=== PATIENT | male | born 1970 | race Caucasian/White ===

== ENCOUNTER 2018-01-12 19:23 | Emergency (ER) | payer OTHER ==
[2018-01-12 19:30] VITALS: BMI 36.6
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
--- NOTE | 2018-01-12 20:44 | CT ---
Indication: Injury and pain Exam: CT head without contrast Technique: Routine transaxial images were obtained of the brain without contrast. Findings: The ventricles are normal. No intracranial hemorrhage or edema is seen. There is no extra-a xial fluid collection or mass. There is mild stranding and edema in the subcutaneous soft tissues adonay ng the left temporal region extending inferiorly along the zygomatic arch on the left. No obvious fra cture can be seen. The midline structures are unremarkable. Impression: No acute intracranial abnormality. Mild scalp hematoma along the left temporal region extending along the left zygomatic arch with no ac dereck fracture. Reported By:
--- NOTE | 2018-01-12 20:47 | CT ---
Indication: Left facial swelling and pain Exam: CT facial bones. Technique: Axial spiral images were obtained from the level above the frontal sinuses through the max illa and reconstructed at 2 mm avulsed with coronal and sagittal reconstructions. Findings: The frontal sinuses are clear. There is mild mucosal thickening throughout the ethmoid and maxillary sinuses. There are no air-fluid levels. The nasal bone is intact. The orbits are intact. Th e mandible appears intact and in good position. The zygomatic arches are intact. The visualized intra cranial and orbital contents are unremarkable. There is moderate stranding and edema in the subcutane ous soft tissues along the temporal region on the left extending inferiorly around the zygomatic arch . The nasal septum is moderately deviated to the right. Impression: No acute bony abnormality seen. Mild chronic sinusitis. Mild to moderate scalp hematoma along the left temporal bone extending around the left zygomatic arch . Reported By:
[2018-01-12 20:54] VITALS: BP 132/75
== END 2018-01-12 21:15 | disposition home or self-care (01) ==
LOC: ER 19:33
DX: S00.03XA Contusion of scalp, initial encounter (principal); S00.83XA Contusion of other part of head, initial encounter; H93.11 Tinnitus, right ear; J32.9 Chronic sinusitis, unspecified; Y04.0XXA Assault by unarmed brawl or fight, initial encounter; X58.XXXA Exposure to other specified factors, initial encounter; Y92.9 Unspecified place or not applicable
CPT/HCPCS: 70450; 70486; 99282; 99283

== ENCOUNTER 2021-05-07 01:02 | Observation (INO) ==
[2021-05-07] MEDS ORDERED: NS 1000 ML 1,000 ML ONE ×4 (01:20→14:45)
[2021-05-07] MEDS ORDERED: NS 1000 ML 1,000 ML IV ONE ×3 (01:32→03:55)
[2021-05-07] MEDS ORDERED: ZOFRAN INJ 4 MG VIAL IVP ONE ×2 (01:36→03:54)
--- NOTE | 2021-05-07 01:40 | DR.N/VMALE ---
HPI Time Seen Time Seen by Provider: 05/07/21 01:23 Primary Care Physician Primary Care Physician: KEE Complaints Chief Complaint:: PT AMBULATORY IN ED WITH C/O DIARRHEA X 2 DAYS AND VOMITING THAT STARTED TONIGHT. Self Treatment fo Chief Complaint: PT TOOK TYLENOL X 2 AND IMMODIUM X 2 AT AROUND 9PN AND 2 MORE TYLENOL AT AROUND MIDNIGHT. COVID-19 Coronavirus risk:travel/contact w/high risk person: No Has patient experienced Coronavirus symptoms: No Source History Provided: Patient Mode of Arrival Mode of Arrival: Ambulatory Timing Onset of Chief Complaint: 05/05/21 PMH PMH Past Medical History: Yes Past Medical History: Anxiety, Diabetes, GERD and Hypertension Past Surgical History: Yes Surgical History: Cholecystectomy and Ortho Surgery Past Surgical History Comment: BACK Family History History of Family Medical Conditions: Yes Family Medical History: Diabetes Mellitus, Cancer, [place], Coronary Artery Disease and Hypertension Social History Does patient currently use any type of tobacco product: No Have you used tobacco products in the last 12 months: No Type of Tobacco Use: None Does any household member use tobacco: No Alcohol Use: None Do you use any recreational Drugs:: No Lives With: Spouse and Family Lives Where: Home Travel Risk Coronavirus risk:travel/contact w/high risk person: No Has patient experienced Coronavirus symptoms: No Infectious screening In the last 2 months have you had wt loss of >10#?: NO Have you had fever, night sweats or hemotysis?: No Have you traveled outside the country in the last 6 months?: No Isolation: Standard PE Vital Signs Vitals: Temperature 98.6 F Pulse Rate 97 Respiratory Rate 20 Blood Pressure [Left Arm] 132/75 Blood Pressure [Right Arm] 120/61 Blood Pressure 123/53 O2 Sat by Pulse Oximetry 100 ROR Labs Reviewed Result Diagrams: 05/07/21 01:25 05/07/21 01:25 Laboratory: WBC 11.9 X10^3/uL (3.6-10.0) H 05/07/21 01:25 RBC 4.97 X10^6/uL (4.7-6.0) 05/07/21 01:25 Hgb 15.5 g/dL (13.5-18.0) 05/07/21 01:25 Hct 44.6 % (42.0-54.0) 05/07/21 01:25 MCV 89.7 fL (80.0-100.0) 05/07/21 01:25 MCH 31.1 pg (27.0-34.0) 05/07/21 01:25 MCHC 34.7 g/dL (33.0-35.0) 05/07/21 01:25 RDW 12.7 % (11.6-16.5) 05/07/21 01:25 Plt Count 171 X10^3/uL (150.0-450.0) 05/07/21 01:25 MPV 8.5 fL (7.4-11.0) 05/07/21 01:25 Neut % (Auto) 83.5 % (42.0-75.0) H 05/07/21 01:25 Lymph % (Auto) 7.2 % (21.0-51.0) L 05/07/21 01:25 [place] % (Auto) 8.8 % (0.0-13.0) 05/07/21 01:25 Eos % (Auto) 0.2 % (0.9-2.9) L 05/07/21 01:25 Baso % (Auto) 0.3 % (0.2-1.0) 05/07/21 01:25 Neut # (Auto) 10.0 x10^3/uL (2.2-4.8) H 05/07/21 01:25 Lymph # (Auto) 0.9 X10^3/uL (1.3-2.9) L 05/07/21 01:25 [place] # (Auto) 1.0 x10^3/uL (0.3-0.8) H 05/07/21 01:25 Eos # (Auto) 0.0 x10^3/uL (0.0-0.2) 05/07/21 01:25 Baso # (Auto) 0.0 X10^3/uL (0.0-0.1) 05/07/21 01:25 Absolute Nucleated RBC 0.0 /100WBC 05/07/21 01:25 Sodium 139 mmol/L (136-145) 05/07/21 01:25 Corrected Sodium 141 mmol/L (136-145) 05/07/21 01:25 Potassium 3.7 mmol/L (3.5-5.1) 05/07/21 01:25 Chloride 105 mmol/L (98-107) 05/07/21 01:25 Carbon Dioxide 20.0 mmol/L (21-32) L 05/07/21 01:25 BUN 23 mg/dL (7-18) H 05/07/21 01:25 Creatinine 1.23 mg/dL (0.70-1.30) 05/07/21 01:25 Est GFR (MDRD) Af Amer > 60 (>60) 05/07/21 01:25 Est GFR (MDRD) Non-Af > 60 (>60) 05/07/21 01:25 Glucose 197 mg/dL (65-99) H 05/07/21 01:25 Lactic Acid 1.8 mmol/L (0.4-2.0) 05/07/21 01:25 Calcium 8.6 mg/dL (8.5-10.1) 05/07/21 01:25 Corrected Calcium TNP 05/07/21 01:25 Total Bilirubin 0.90 mg/dL (0.2-1.0) 05/07/21 01:25 AST 14 Units/L (15-37) L 05/07/21 01:25 ALT 35 Units/L (12-78) 05/07/21 01:25 Alkaline Phosphatase 104 Units/L (46-116) 05/07/21 01:25 Creatine Kinase 63 Units/L (39-308) 05/07/21 01:25 CK-MB (CK-2) < 1.0 ng/mL (0-4.0) 05/07/21 01:25 CK/CKMB % Calc 1.6 % (<4) 05/07/21 01:25 Troponin I < 0.02 ng/mL (0-1.5) 05/07/21 01:25 Total Protein 6.9 g/dL (6.4-8.2) 05/07/21 01:25 Albumin 3.6 g/dL (3.4-5.0) 05/07/21 01:25 Globulin 3.3 g/dL (2.5-4.5) 05/07/21 01:25 Albumin/Globulin Ratio 1.1 Ratio (1.1-2.1) 05/07/21 01:25 Amylase 27 Units/L (25-115) 05/07/21 01:25 Lipase 98 Units/L (73-393) 05/07/21 01:25 Specimen Type Clean catch urine 05/07/21 03:34 Urine Color Straw (YELLOW) 05/07/21 03:34 Urine Appearance Clear (CLEAR) 05/07/21 03:34 Urine pH 5.0 (5.0 - 8.0) 05/07/21 03:34 Ur Specific [place] 1.020 (1.000-1.030) 05/07/21 03:34 Urine Protein Negative (NEGATIVE) 05/07/21 03:34 Urine Glucose (UA) 4+ (NEGATIVE) 05/07/21 03:34 Urine Ketones 1+ (NEGATIVE) 05/07/21 03:34 Urine Occult Blood Negative (NEGATIVE) 05/07/21 03:34 Urine Nitrite Negative (NEGATIVE) 05/07/21 03:34 Urine Bilirubin Negative (NEGATIVE) 05/07/21 03:34 Urine Urobilinogen Normal (NORMAL) 05/07/21 03:34 Ur Leukocyte Esterase Negative (NEGATIVE) 05/07/21 03:34 Acetone, Semi-Quant Negative (NEGATIVE) 05/07/21 01:25 SARS-CoV-2 (PCR) Negative (NEGATIVE) 05/07/21 01:31 Influenza Type A (PCR) Negative (NEGATIVE) 05/07/21 01:31 Influenza Type B (PCR) Negative (NEGATIVE) 05/07/21 01:31 RSV (PCR) Negative (NEGATIVE) 05/07/21 01:31 Opioid Opioid Risk Tool Age (Mahad box if 16-45): No History of Preadolescent Sexual Abuse: No Total: 0 Total Score Risk Category: Low Risk Copyright: Josh FAUST predicting aberrant behaviors
[2021-05-07] MEDS ORDERED: ZOFRAN INJ 4 MG VIAL ONE ×2 (01:43→03:56)
[2021-05-07 02:00] LABS: BASOPHILS % (AUTO) 0.3 % (0.2-1.0); EOSINOPHILS % (AUTO) 0.2 % (0.9-2.9); HEMATOCRIT 44.6 % (42.0-54.0); HEMOGLOBIN 15.5 g/dL (13.5-18.0); LYMPHOCYTES # (AUTO) 0.9 X10^3/uL (1.3-2.9); LYMPHOCYTES % (AUTO) 7.2 % (21.0-51.0); MEAN CORPUSCULAR HEMOGLOBIN 31.1 pg (27.0-34.0); MEAN CORPUSCULAR HGB CONC 34.7 g/dL (33.0-35.0); MEAN CORPUSCULAR VOLUME 89.7 fL (80.0-100.0); MEAN PLATELET VOLUME 8.5 fL (7.4-11.0); MONOCYTES % (AUTO) 8.8 % (0.0-13.0); NEUTROPHILS % (AUTO) 83.5 % (42.0-75.0); PLATELET COUNT 171 X10^3/uL (150.0-450.0); RED BLOOD COUNT 4.97 X10^6/uL (4.7-6.0); RED CELL DISTRIBUTION WIDTH 12.7 % (11.6-16.5); WHITE BLOOD COUNT 11.9 X10^3/uL (3.6-10.0)
[2021-05-07 02:16] LABS: ALANINE AMINOTRANSFERASE 35 Units/L (12-78); ALBUMIN 3.6 g/dL (3.4-5.0); ALKALINE PHOSPHATASE 104 Units/L (46-116); AMYLASE 27 Units/L (25-115); ASPARTATE AMINO TRANSFERASE 14 Units/L (15-37); BLOOD UREA NITROGEN 23 mg/dL (7-18); CALCIUM 8.6 mg/dL (8.5-10.1); CHLORIDE 105 mmol/L (98-107); COR NA(FOR HYPERGLY) 141 mmol/L (136-145); CREATININE 1.23 mg/dL (0.70-1.30); LIPASE 98 Units/L (73-393); SODIUM 139 mmol/L (136-145); TOTAL PROTEIN 6.9 g/dL (6.4-8.2); eGFR NON BLACK RACES > 60 (>60)
[2021-05-07 02:19] LABS: LACTIC ACID 1.8 mmol/L (0.4-2.0)
[2021-05-07 02:26] LABS: CKMB % 1.6 % (<4); CREATINE KINASE 63 Units/L (39-308); CREATINE KINASE MB < 1.0 ng/mL (0-4.0); TROPONIN I < 0.02 ng/mL (0-1.5)
--- NOTE | 2021-05-07 02:48 | RAD ---
STUDY: FRONTAL VIEW CHESTCOMPARISON: NoneHISTORY: SOBFINDINGS:No focal consolidation is seen.The heart size is within normal limits.The mediastinum is unremarkable.There is no evidence of pleural effusion or gross pneumothorax.The trachea is midline.IMPRESSION:1. No focal consolidation is seen.2. The heart size is normal.Electronically signed by: Cedrick Ramos (May 07, 2021 02:45:39)
[2021-05-07 03:48] LABS: BILIRUBIN,URINE NEGATIVE (NEGATIVE); BLOOD/HEMOGLOBIN,URINE NEGATIVE (NEGATIVE); GLUCOSE, URINE 4+ (NEGATIVE); KETONES,URINE 1+ (NEGATIVE); LEUKOCYTE ESTERASE ,URINE NEGATIVE (NEGATIVE); NITRITES,URINE NEGATIVE (NEGATIVE); PROTEIN,URINE NEGATIVE (NEGATIVE); UROBILINOGEN,URINE NORMAL (NORMAL)
[2021-05-07 03:54] LABS: APPEARANCE,URINE CLEAR (CLEAR); COLOR,URINE STRAW (YELLOW)
--- NOTE | 2021-05-07 04:16 | CT ---
STUDY: CT ABDOMEN AND PELVIS WITHOUT IV CONTRASTCOMPARISON: NoneTECHNIQUE: Axial images were obtained of the abdomen and pelvis without IV contrast. Sagittal and coronal reformatted images were provided. All images were reviewed in a variety of windows and levels.RADIATION REDUCTION TECHNIQUE: Automated exposure control, adjustment of the mA or kV according to patient size, or iterative reconstruction techniques were used.HISTORY: abdominal painFINDINGS:Please note that lack of IV contrast does limit evaluation of the soft tissues and vascular detail.The visualized lower lung zones are clear. The heart size is within normal limits. There is no evidence of a pericardial effusion.The liver, spleen, pancreas, adrenal glands, and kidneys are grossly unremarkable. The patient is status post cholecystectomy.There is no evidence of stones or signs of obstructive uropathy.The stomach, small bowel, and colon are grossly unremarkable. A few scattered diverticula are seen without evidence of diverticulitis. There are no inflammatory changes in the right lower quadrant to suggest secondary signs of acute appendicitis. The appendix is not visualized on this exam. Umbilical hernia is notedThere is no evidence of retroperitoneal or mesenteric lymphadenopathy.The visualized bones demonstrate degenerative changes. There are no concerning lytic or blastic lesions identified.IMPRESSION:- Status post cholecystectomy- No evidence of stones or signs of obstructive uropathyElectronically signed by: Cedrick Ramos (May 07, 2021 04:13:51)
[2021-05-07] MEDS ORDERED: TORADOL 30 MG VIAL IVP ONE (04:29)
[2021-05-07] MEDS ORDERED: REGLAN INJ 10 MG VIAL IVP ONE (04:29)
[2021-05-07] MEDS ORDERED: TORADOL 30 MG VIAL ONE (04:31)
[2021-05-07] MEDS ORDERED: REGLAN INJ 10 MG VIAL ONE (04:31)
[2021-05-07] MEDS ORDERED: ZOSYN VIAL 3.375 GRAMS 3.375 G in NS 100 ML IV + SPIKE MINIBAG* 100 ML IV ONE (05:35)
[2021-05-07] MEDS ORDERED: NS 100 ML IV + SPIKE MINIBAG* 100 ML IV ONE (05:37)
[2021-05-07] MEDS ORDERED: ZOSYN VIAL 3.375 GRAMS IV ONE (05:37)
[2021-05-07] MEDS ORDERED: REGLAN INJ 10 MG VIAL IVP PRN (06:11)
[2021-05-07 06:26] LABS: ALANINE AMINOTRANSFERASE 34 Units/L (12-78); ALBUMIN 3.2 g/dL (3.4-5.0); ALKALINE PHOSPHATASE 98 Units/L (46-116); ASPARTATE AMINO TRANSFERASE 23 Units/L (15-37); BLOOD UREA NITROGEN 21 mg/dL (7-18); CARBON DIOXIDE 20.3 mmol/L (21-32); CHLORIDE 107 mmol/L (98-107); COR CA(FOR HYPOALB) 8.6 mg/dL (8.5-10.1); COR NA(FOR HYPERGLY) 142 mmol/L (136-145); CREATININE 1.09 mg/dL (0.70-1.30); SODIUM 140 mmol/L (136-145); TOTAL PROTEIN 6.2 g/dL (6.4-8.2); eGFR NON BLACK RACES > 60 (>60)
[2021-05-07] MEDS: PROzac PO SCH ×3 (06:46→21:10)
[2021-05-07] MEDS ORDERED: CIPRO IV 200 MG PREMIX* 200 MG/100 ML BAG IV SCH (08:00)
[2021-05-07] MEDS: PEPCID 20 MG IV PREMIX* 20 MG/50 ML BAG IV SCH ×2 (09:14→22:00)
[2021-05-07] MEDS: GLUCOTROL XL 24-HR PO SCH (09:15)
[2021-05-07] MEDS: ZOFRAN INJ 4 MG VIAL IVP PRN ×2 (09:32→22:30)
[2021-05-07 11:03] LABS: CRYPTOSPORIDIUM PARVUM ANTIGEN NEGATIVE (NEGATIVE); GIARDIA LAMBLIA ANTIGEN NEGATIVE (NEGATIVE)
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
[2021-05-07 12:15] VITALS: BMI 30.9
[2021-05-07] MEDS: ZOSYN VIAL 3.375 GRAMS 3.375 G in NS 50 ML IV + SPIKE MINIBAG* 50 ML IV SCH ×2 (14:53→22:50)
[2021-05-07] MEDS ORDERED: ULTRAM PO PRN (14:55)
[2021-05-07] MEDS: TORADOL 30 MG VIAL IVP PRN (15:26)
[2021-05-07] MEDS: NS 1000 ML 1,000 ML IV SCH (16:27)
[2021-05-07] MEDS: CIPRO IV 400 MG PREMIX* 400 MG/200 ML IV.SOLN. IV SCH (21:15)
[2021-05-08] MEDS: NS 1000 ML 1,000 ML IV SCH ×5 (02:42→23:45)
[2021-05-08] MEDS: ZOSYN VIAL 3.375 GRAMS 3.375 G in NS 50 ML IV + SPIKE MINIBAG* 50 ML IV SCH ×3 (06:00→21:15)
[2021-05-08] MEDS: PROzac PO SCH (06:13)
[2021-05-08 06:19] LABS: BASOPHILS % (AUTO) 0.3 % (0.2-1.0); EOSINOPHILS % (AUTO) 0.2 % (0.9-2.9); HEMATOCRIT 39.1 % (42.0-54.0); HEMOGLOBIN 13.6 g/dL (13.5-18.0); LYMPHOCYTES % (AUTO) 13.5 % (21.0-51.0); MEAN CORPUSCULAR HGB CONC 34.7 g/dL (33.0-35.0); MEAN CORPUSCULAR VOLUME 89.3 fL (80.0-100.0); MEAN PLATELET VOLUME 8.3 fL (7.4-11.0); MONOCYTES # (AUTO) 1.1 x10^3/uL (0.3-0.8); NEUTROPHILS # (AUTO) 5.2 x10^3/uL (2.2-4.8); PLATELET COUNT 141 X10^3/uL (150.0-450.0); RED BLOOD COUNT 4.38 X10^6/uL (4.7-6.0); RED CELL DISTRIBUTION WIDTH 12.8 % (11.6-16.5); WHITE BLOOD COUNT 7.4 X10^3/uL (3.6-10.0)
[2021-05-08 06:39] LABS: ALANINE AMINOTRANSFERASE 42 Units/L (12-78); ALBUMIN 2.9 g/dL (3.4-5.0); ALKALINE PHOSPHATASE 87 Units/L (46-116); ASPARTATE AMINO TRANSFERASE 20 Units/L (15-37); BLOOD UREA NITROGEN 13 mg/dL (7-18); CALCIUM 8.3 mg/dL (8.5-10.1); CARBON DIOXIDE 23.5 mmol/L (21-32); CHLORIDE 108 mmol/L (98-107); COR CA(FOR HYPOALB) 9.2 mg/dL (8.5-10.1); COR NA(FOR HYPERGLY) 142 mmol/L (136-145); CREATININE 0.91 mg/dL (0.70-1.30); SODIUM 142 mmol/L (136-145); TOTAL PROTEIN 6.1 g/dL (6.4-8.2); eGFR NON BLACK RACES > 60 (>60)
[2021-05-08] MEDS: GLUCOTROL XL 24-HR PO SCH (08:53)
[2021-05-08] MEDS: PEPCID 20 MG IV PREMIX* 20 MG/50 ML BAG IV SCH ×2 (08:55→21:15)
[2021-05-08] MEDS: TORADOL 30 MG VIAL IVP PRN (08:55)
[2021-05-08] MEDS: CIPRO IV 400 MG PREMIX* 400 MG/200 ML IV.SOLN. IV SCH ×2 (08:55→21:16)
[2021-05-08] MEDS ORDERED: PROzac PO NR (10:00)
--- NOTE | 2021-05-08 16:54 | PCM.PROG ---
Progress Note - Progress Note for Day of Date of Exam: 05/08/21 - Subjective Subjective: IS BEING TREATED FOR CAMPYLOBACTER GASTROENTERITIS, DEHYDRATION, NAUSEA AND VOMITING, AND GENERALIZED WEAKNESS. TODAY, HE IS ALERT AND ORIENTED, LYING IN BED ON MORNING ROUNDS. HE CONTINUES WITH DIARRHEA AND ABDOMINAL CRAMPING. HE DOES ADMIT TO SLIGHT IMPROVEMENT SINCE ADMISSION. ON EXAMINATION, HEART IS REGULAR IN RATE AND RHYTHM. BILATERAL LUNGS ARE CLEAR TO AUSCULTATION. ABDOMEN IS ROUND, SOFT, AND NOTED WITH MILD DIFFUSE TENDERNESS TO PALPATION. HYPERACTIVE BOWEL SOUNDS NOTED IN ALL QUADRANTS. HIS VITALS THIS MORNING ARE: 98.0-73-18-93%-115/62. LABS WERE OBTAINED. ABNORMAL LAB VALUES INCLUDE THE FOLLOWING: RBC 4.38, HCT 39.1, PLT COUNT 141, CHLORIDE 108, GLUCOSE 111, CALCIUM 8.3, TOTAL PROTEIN 6.1, ALBUMIN 2.9. STOOL AND BLOOD CULTURES ARE PENDING. HE IS CURRENTLY RECEIVING NORMAL SALINE AT 125 ML/HR, CIPRO 400MG IV Q12H, ZOSYN 3.375G IV TID, PEPCID 20MG IV Q12H, PROZAC 20MG PO TID, GLIPIZIDE 2.5MG PO DAILY, REGLAN 10MG IV Q6H, OTBS ACHS, ZOFRAN 4MG IV Q6H PRN. WE WILL CONTINUE WITH CURRENT PLAN OF CARE TODAY. OTHERWISE, WE WILL FOLLOW UP WITH AM LABS AND CONTINUE TO MONITOR. TIME SPENT ON CLINICAL ASSESSMENT, REVIEWING LABS AND IMAGING, DECISION MAKING, AND DOCUMENTATION WAS GREATER THAN 45 MINUTES. - Past Medical Family Social History Past Med/Fam/Surg Hx: No changes since H&P Allergies: Allergies No Known Drug Allergies Allergy (Verified 01/12/18 19:30) - Review of Systems ROS: No change since H&P - Vital Signs and I&O's Vital Signs: Temperature 98.3 F Pulse Rate [Radial] 70 Pulse Rate 97 Respiratory Rate 18 Blood Pressure [Left Arm] 103/61 Blood Pressure [Right Arm] 120/61 Blood Pressure 141/72 O2 Sat by Pulse Oximetry 95 Intake and Output: Intake & Output 05/06/21 05/07/21 05/08/21 05/09/21 11:59 11:59 11:59 11:59 Intake Total 2667 / 2667 480 / 480 Balance 2667 / 2667 480 / 480 - Physical Exam Oriented: Normal Eyes: Normal Ear: Normal Nose: Normal Throat: Normal Respiratory: Normal Cardiovascular: Normal : Normal Auscultation: Bowel Sounds: Normal Palpation: Normal Tenderness: Diffuse, Mild Skin: Normal Musculoskeletal: Normal Psychiatric: Normal Mood Description: Calm Affect: Normal Speech Pattern: Clear, Appropriate - Laboratory and Diagnostics Result Diagrams: 05/08/21 05:24 05/08/21 05:24 Labs: 05/07/21 09:19 Stool Stool Culture - Preliminary 05/07/21 09:19 Stool - Final Laboratory WBC 7.4 X10^3/uL (3.6-10.0) 05/08/21 05:24 RBC 4.38 X10^6/uL (4.7-6.0) L 05/08/21 05:24 Hgb 13.6 g/dL (13.5-18.0) 05/08/21 05:24 Hct 39.1 % (42.0-54.0) L 05/08/21 05:24 MCV 89.3 fL (80.0-100.0) 05/08/21 05:24 MCH 31.0 pg (27.0-34.0) 05/08/21 05:24 MCHC 34.7 g/dL (33.0-35.0) 05/08/21 05:24 RDW 12.8 % (11.6-16.5) 05/08/21 05:24 Plt Count 141 X10^3/uL (150.0-450.0) L 05/08/21 05:24 MPV 8.3 fL (7.4-11.0) 05/08/21 05:24 Neut % (Auto) 71.0 % (42.0-75.0) 05/08/21 05:24 Lymph % (Auto) 13.5 % (21.0-51.0) L 05/08/21 05:24 [place] % (Auto) 15.0 % (0.0-13.0) H 05/08/21 05:24 Eos % (Auto) 0.2 % (0.9-2.9) L 05/08/21 05:24 Baso % (Auto) 0.3 % (0.2-1.0) 05/08/21 05:24 Neut # (Auto) 5.2 x10^3/uL (2.2-4.8) H 05/08/21 05:24 Lymph # (Auto) 1.0 X10^3/uL (1.3-2.9) L 05/08/21 05:24 [place] # (Auto) 1.1 x10^3/uL (0.3-0.8) H 05/08/21 05:24 Eos # (Auto) 0.0 x10^3/uL (0.0-0.2) 05/08/21 05:24 Baso # (Auto) 0.0 X10^3/uL (0.0-0.1) 05/08/21 05:24 Absolute Nucleated RBC 0.0 /100WBC 05/08/21 05:24 Sodium 142 mmol/L (136-145) 05/08/21 05:24 Corrected Sodium 142 mmol/L (136-145) 05/08/21 05:24 Potassium 3.8 mmol/L (3.5-5.1) 05/08/21 05:24 Chloride 108 mmol/L (98-107) H 05/08/21 05:24 Carbon Dioxide 23.5 mmol/L (21-32) 05/08/21 05:24 BUN 13 mg/dL (7-18) 05/08/21 05:24 Creatinine 0.91 mg/dL (0.70-1.30) 05/08/21 05:24 Est GFR (MDRD) Af Amer > 60 (>60) 05/08/21 05:24 Est GFR (MDRD) Non-Af > 60 (>60) 05/08/21 05:24 Glucose 111 mg/dL (65-99) H 05/08/21 05:24 POC Glucose (mg/dL) 137 mg/dL (65-99) H 05/08/21 11:08 Lactic Acid 1.8 mmol/L (0.4-2.0) 05/07/21 01:25 Calcium 8.3 mg/dL (8.5-10.1) L 05/08/21 05:24 Corrected Calcium 9.2 mg/dL (8.5-10.1) 05/08/21 05:24 Total Bilirubin 0.90 mg/dL (0.2-1.0) 05/08/21 05:24 AST 20 Units/L (15-37) 05/08/21 05:24 ALT 42 Units/L (12-78) 05/08/21 05:24 Alkaline Phosphatase 87 Units/L (46-116) 05/08/21 05:24 Creatine Kinase 63 Units/L (39-308) 05/07/21 01:25 CK-MB (CK-2) < 1.0 ng/mL (0-4.0) 05/07/21 01:25 CK/CKMB % Calc 1.6 % (<4) 05/07/21 01:25 Troponin I < 0.02 ng/mL (0-1.5) 05/07/21 01:25 Total Protein 6.1 g/dL (6.4-8.2) L 05/08/21 05:24 Albumin 2.9 g/dL (3.4-5.0) L 05/08/21 05:24 Globulin 3.2 g/dL (2.5-4.5) 05/08/21 05:24 Albumin/Globulin Ratio 0.9 Ratio (1.1-2.1) L 05/08/21 05:24 Amylase 27 Units/L (25-115) 05/07/21 01:25 Lipase 98 Units/L (73-393) 05/07/21 01:25 Specimen Type Clean catch urine 05/07/21 03:34 Urine Color Straw (YELLOW) 05/07/21 03:34 Urine Appearance Clear (CLEAR) 05/07/21 03:34 Urine pH 5.0 (5.0 - 8.0) 05/07/21 03:34 Ur Specific [place] 1.020 (1.000-1.030) 05/07/21 03:34 Urine Protein Negative (NEGATIVE) 05/07/21 03:34 Urine Glucose (UA) 4+ (NEGATIVE) 05/07/21 03:34 Urine Ketones 1+ (NEGATIVE) 05/07/21 03:34 Urine Occult Blood Negative (NEGATIVE) 05/07/21 03:34 Urine Nitrite Negative (NEGATIVE) 05/07/21 03:34 Urine Bilirubin Negative (NEGATIVE) 05/07/21 03:34 Urine Urobilinogen Normal (NORMAL) 05/07/21 03:34 Ur Leukocyte Esterase Negative (NEGATIVE) 05/07/21 03:34 Stool Description 150g brown liquid 05/07/21 09:19 Stool Description 150g brown liquid 05/07/21 09:19 Stl Occult Blood (IFOB) Positive (NEGATIVE) A 05/07/21 09:19 Stool for White Cells Positive (NEGATIVE) A 05/07/21 09:19 Stl C. diff Tox B Gene Negative (NEGATIVE) 05/07/21 09:19 Stl C. diff [id number] Presumptive negative (NEGATIVE) 05/07/21 09:19 Stool H. pylori Ag Negative (NEGATIVE) 05/07/21 09:19 Acetone, Semi-Quant Negative (NEGATIVE) 05/07/21 01:25 SARS-CoV-2 (PCR) Negative (NEGATIVE) 05/07/21 01:31 Cryptosporid parvum Ag Negative (NEGATIVE) 05/07/21 09:19 Giardia lamblia Ag Negative (NEGATIVE) 05/07/21 09:19 Influenza Type A (PCR) Negative (NEGATIVE) 05/07/21 01:31 Influenza Type B (PCR) Negative (NEGATIVE) 05/07/21 01:31 RSV (PCR) Negative (NEGATIVE) 05/07/21 01:31 - Plan (1) Campylobacter gastroenteritis Status: Acute Plan: NORMAL SALINE AT 125 ML/HR, CIPRO 400MG IV Q12H, ZOSYN 3.375G IV TID, PEPCID 20MG IV Q12H, PROZAC 20MG PO TID, GLIPIZIDE 2.5MG PO DAILY, REGLAN 10MG IV Q6H, OTBS ACHS, ZOFRAN 4MG IV Q6H PRN. (2) Dehydration Status: Acute (3) Nausea & vomiting Status: Acute Qualifiers: Vomiting type: unspecified Vomiting Intractability: unspecified Qualified Code(s): R11.2 - Nausea with vomiting, unspecified (4) Generalized weakness Status: Acute
[2021-05-09] MEDS: ZOSYN VIAL 3.375 GRAMS 3.375 G in NS 50 ML IV + SPIKE MINIBAG* 50 ML IV SCH (05:49)
[2021-05-09] MEDS: TORADOL 30 MG VIAL IVP PRN (05:56)
[2021-05-09] MEDS: NS 1000 ML 1,000 ML IV SCH (06:03)
[2021-05-09] MEDS: GLUCOTROL XL 24-HR PO SCH (08:35)
[2021-05-09] MEDS: PEPCID 20 MG IV PREMIX* 20 MG/50 ML BAG IV SCH (08:36)
[2021-05-09] MEDS ORDERED: PROzac PO SCH (09:00)
[2021-05-09] MEDS: CIPRO IV 400 MG PREMIX* 400 MG/200 ML IV.SOLN. IV SCH (09:51)
[2021-05-09 13:05] VITALS: BP 119/73
== END 2021-05-09 12:50 | disposition home or self-care (01) ==
LOC: ER 01:02 → MED/SURG 01:02
PROVIDERS: ADMIT Internal Medicine; ATTEND Internal Medicine
DX: R10.84 Generalized abdominal pain; E86.0 Dehydration; K21.9 Gastro-esophageal reflux disease without esophagitis; R53.1 Weakness; K92.2 Gastrointestinal hemorrhage, unspecified; E11.65 Type 2 diabetes mellitus with hyperglycemia; R11.2 Nausea with vomiting, unspecified; R19.7 Diarrhea, unspecified; R68.89 Other general symptoms and signs; Z20.822 Contact with and (suspected) exposure to COVID-19; A04.5 Campylobacter enteritis; I10 Essential (primary) hypertension